=== PATIENT | female | born 1930 | race Caucasian/White ===

== ENCOUNTER 2019-05-01 07:14 | Inpatient (IN) | payer MEDICAID, MEDICARE ==
[2019-05-01 07:29] LABS: Hemoglobin 12.9 g/dL (12.0-16.0); Mean Corpuscular HGB CONC 32.8 g/dL (32.0-36.0); Mean Corpuscular Hemoglobin 31.7 pg (27.0-31.0); Mean Corpuscular Volume 96.6 fL (78.0-98.0); Mean Platelet Volume 7.4 fL (7.4-10.4); Platelet Count 221 thou/uL (130-400); RBC Distribution Width 11.7 % (11.5-14.5); Red Blood Cell (RBC) Count 4.06 mill/uL (4.20-5.40); White Blood Cell (WBC) Count 5.4 thou/uL (4.8-10.8)
[2019-05-01 07:36] LABS: Prothrombin Time 13.4 SEC (12.0-14.7)
[2019-05-01 07:39] LABS: PTT 31.4 SEC (22.9-36.1)
[2019-05-01 07:44] LABS: ALT (SGPT) 18 U/L (8-55); AST (SGOT) 24 U/L (5-34); Albumin 3.8 g/dL (3.4-4.8); Alkaline Phosphatase 64 U/L (40-110); Anion Gap 13 mmol/L (10-20); BUN (Urea Nitrogen) 22 mg/dL (9.8-20.1); Bilirubin, Total 0.6 mg/dL (0.2-1.2); CK (CPK) 97 U/L (29-168); Calc. Creatinine Clearance 0 mL/min (70-130); Carbon Dioxide 22 mmol/L (23-31); Chloride 101 mmol/L (98-107); Estimated GFR-MDRD 54; Globulin 2.8 g/dL (2.4-3.5); Glucose 106 mg/dL (83-110); Potassium 4.2 mmol/L (3.5-5.1); Protein, Total 6.6 g/dL (6.0-8.3); Sodium 132 mmol/L (136-145)
--- NOTE | 2019-05-01 07:44 | CT ---
EXAM: Brain CT scan Without contrast: HISTORY: Stroke alert, TIA, hypertension history, left-sided weakness, slurred speech, facial droop COMPARISON: None FINDINGS: Several small foci of increased density in the right middle cerebral artery, nonspecific. Atrophy and chronic white matter ischemic change. No focal mass or midline shift. No intra or extra-axial hemorrhage. The visualized sinuses and mastoids are clear of acute process. IMPRESSION: No mass or bleed or other significant acute intracranial process. Findings were discussed with the ordering physician at 7:40 AM CODE CR
[2019-05-01 07:48] LABS: Band 2 % (5-11); Eosinophils 2 % (0-10); Lymphocytes 36 % (21-51); MDiff Complete? YES; Monocytes 6 % (0-10); Neutrophil 52 % (42-75); Platelet Morphology Comment Appears Adequate; RBC Morphology Normal
--- NOTE | 2019-05-01 08:28 | RAD ---
EXAM: CHEST ONE VIEW HISTORY: Altered mental status. Left-sided deficits. Patient has left-sided facial droop and slurred speech. COMPARISON: None FINDINGS: The cardiac silhouette is enlarged. Pulmonary vasculature is within normal limits. There is mild prom inence of the interstitial markings within the lungs bilaterally which may be related to mild chronic lung changes. No consolidation or pleural fluid is identified. Vascular calcifications are se en in the thoracic aorta. There is osteopenia with mild degenerative changes in the thoracic spine. IMPRESSION: 1. No acute cardiopulmonary process. 2. Cardiomegaly. 3. Mild prominence of interstitial markings probably attributable to mild chronic interstitial lung c mejia.
--- NOTE | 2019-05-01 08:47 | CT ---
CT angiogram head CT angiogram neck CT perfusion: 05/01/2019 COMPARISON: None HISTORY: Left-sided weakness with slurred speech and facial droop TECHNIQUE: Axial CT imaging at 1.25 mm intervals from the vertex through the lung apices with IV cont rast using CT angiogram protocol with coronal and sagittal 3-D reformatted imaging. CT perfusion obtained as well. FINDINGS: Imaged lung apices demonstrate mild diffuse increased linear interstitial density with mild diffuse bronchial wall thickening. The retroantral fat and parapharyngeal fat appears clear bilaterally. The parotid and submandibular g lands are grossly unremarkable. Limited assessment of the aerodigestive tract appears grossly unremarkable. No lymphadenopathy is noted within the neck. Origin of the innominate artery, left common carotid artery, and left subclavian artery unremarkable. There is calcification at the origin of the left vertebral artery without stenosis. Origin of right subclavian artery, right common carotid artery, and right vertebral artery unremarkable. On the basis of NASCET criteria, no hemodynamically significant stenosis is appreciated involving the common carotid artery or the internal carotid artery on either side. There is atherosclerotic calcifi cation involving the distal CCA as well as the proximal ICA and proximal ECA bilaterally. Left vertebral artery is dominant. Bilateral vertebral arteries are patent. Multifocal distal right v ertebral artery stenosis noted with a focal area of severe stenosis involving the distal right vertebral artery just proximal to the origin of the basilar artery. No significant stenosis of the ba silar artery. Focal area of prominent RADIATION TECHNICIAN stenosis present on the left on axial image 206. No saccular aneurysm or vascular occlusion is seen involving the posterior circulation. Bilateral cavernous carotid atherosclerotic calcification. A1 segment patent bilaterally. Distal QUINTON branches unremarkable. ICA bifurcation is unremarkable bilaterally. There is mild/moderate stenosis involving the midportion of the left M1 segment. Left M1 segment is p atent. MCA bifurcation on the left appears unremarkable. Distal MCA branches on the left appear grossly unremarkable. A focal filling defect is noted within the distal M1 segment on the right, consistent with a focal th rombus within the distal right M1 segment, best seen on axial image 214. This results in a focal area of distal right M1 occlusion, evident on sagittal image 300. Associated mild loss of anterior M2 branches noted on the right. The osseous structures demonstrate multilevel cervical spine degenerative change with multilevel disc space narrowing as well as multilevel bilateral facet and uncovertebral osteophyte formation. No worrisome lytic or blastic bone lesion. IMPRESSION: Distal M1 clot on the right. Additional findings as detailed above. Results were discussed with Dr. Branch at approximately 7:55 AM 05/01/2019. Following this discussion, CT perfusion maps were obtained. CT perfusion maps demonstrate abnormal in creased time to peak and mean transit time involving the entire MCA distribution on the right. Blood flow is diminished throughout the right MCA territory as well. However, the cerebral blood volu me maps are normal suggesting a large salvageable penumbra with no definite evidence for completed infarction at this time. This was discussed with Dr. Santiago at approximately 8:35 AM 05/01/2019.
[2019-05-01] MEDS ORDERED: Heparin 10,000 UNITS/1 ML VIAL ONE (09:05)
[2019-05-01] MEDS ORDERED: Heparin (Artline) 1,000 ML ONE (09:05)
[2019-05-01] MEDS ORDERED: Heparin (Artline) 500 ML ONE (09:16)
[2019-05-01] MEDS ORDERED: Fentanyl 100 MCG/2 ML VIAL ONE (09:19)
[2019-05-01] MEDS ORDERED: PHENYLEPHRINE-NS 100 MCG/ML 10 ML SYRINGE ONE (09:44)
[2019-05-01] MEDS ORDERED: Ondansetron PF 4 MG/2 ML Vial ONE (09:44)
[2019-05-01] MEDS ORDERED: PROPOFOL 200 MG/20 ML VIAL ONE (09:44)
[2019-05-01] MEDS ORDERED: Glycopyrrolate 0.2 MG/ML 5 ML SYRINGE ONE (09:44)
[2019-05-01] MEDS ORDERED: Rocuronium Bromide 10 MG/ML (10ML VIAL) ONE (09:44)
[2019-05-01] MEDS ORDERED: Dexamethasone 20 MG/5 ML VIAL ONE (09:44)
[2019-05-01] MEDS ORDERED: Lidocaine 1% PF 5 ML VIAL ONE (09:44)
[2019-05-01] MEDS ORDERED: Labetalol HCl 100 MG/20 ML VIAL SLOW IVP PRN (10:19)
[2019-05-01] MEDS ORDERED: hydrALAZINE 20 MG/ML VIAL SLOW IVP PRN (10:19)
[2019-05-01] MEDS ORDERED: niCARdipine 25 MG in Sodium Chloride 0.9% 250 ML 240 ML IVPB PRN (10:19)
--- NOTE | 2019-05-01 10:19 | PRG ---
DATE OF SERVICE: 05/01/2019 Ms. Rolle is an 88-year-old female with history known for atrial fibrillation, who awoke today with a dense left hemiparesis and facial droop. She was brought to the ER, where she underwent a noncontrast head CT, which was negative for hemorrhage. Subsequent to that, she had a CT angiogram performed, which showed occlusion of the middle cerebral artery on the right. A CT perfusion study was performed, which indicated a viable penumbra distal to the occluded site. The plan this morning is cerebral angiography with the intent to treat with mechanical thrombectomy. Job ID: [id number]
[2019-05-01] MEDS ORDERED: SUGAMMADEX SODIUM 200 MG/2 ML VIAL ONE (10:33)
[2019-05-01] MEDS ORDERED: Iopamidol 370 76% 100 ML VIAL ONE (13:20)
[2019-05-01] MEDS ORDERED: Iopamidol 370 76% 50 ML VIAL FS ONE (13:20)
[2019-05-01] MEDS: Sodium Chloride 0.9% 1,000 ML IV SCH (13:30)
--- NOTE | 2019-05-01 16:00 | CON ---
DATE OF CONSULTATION: 05/01/2019 SERVICE: Pulmonary Medicine. REASON FOR CONSULTATION: ICU patient. HISTORY OF PRESENT ILLNESS: The patient is an 88-year-old white female with past medical history significant for TIA and atrial fibrillation. She was on Eliquis in the outpatient setting. She was on Plavix for a period of time, but this was previously interrupted. In her usual state of health last night, she went to bed. On waking up this morning, she was not able to move the left side of her body. She was brought to the emergency department. Because her window was unknown, no tPA was administered, but she was a candidate for a YAN procedure. She is postop day #0 from that procedure. She is recovering in the ICU. Her NIH scale has improved dramatically and is down to 4 at this moment. She denies any current fevers or chills, shortness of breath, nausea, or vomiting. Prior to this event, she would not have any fevers, chills, cough, sputum production, or diarrhea. Otherwise, she is in her usual state of health. The family is present at bedside and have no specific questions or concerns at this moment. They have a full appreciation for what has happened. We talked in broad terms about a stroke, and what that means to the patient. Hopefully, she will make good neurologic recovery, but only time can tell. PAST MEDICAL HISTORY: 1. Hypertension. 2. Atrial fibrillation. 3. History of TIA. 4. CVA. PAST SURGICAL HISTORY: YAN procedure. FAMILY HISTORY: Noncontributory. SOCIAL HISTORY: Negative for current alcohol, tobacco, or illicit drug use. She has no exposure to chemicals, dust, asbestos, or tuberculosis. ALLERGIES: NKDA MEDICATIONS: Reviewed in the medical record. REVIEW OF SYSTEMS: General, head, ears, eyes, nose, throat, cardiovascular, respiratory, GI, , musculoskeletal, neurologic, and skin is negative except as mentioned in the HPI. PHYSICAL EXAMINATION: VITAL SIGNS: Afebrile; pulse 99; blood pressure 142/85; respirations 16; and saturation 98%, currently on 2 L nasal cannula. GENERAL: The patient is awake and alert, in no apparent distress. LUNGS: Decent air entry with no prolonged expiratory phase or wheezing. HEART: Normal rate. Regular. ABDOMEN: Soft, nontender, and nondistended. Bowel sounds are positive. MUSCULOSKELETAL: No cyanosis or clubbing. There is no pitting in bilateral lower extremities. LABORATORY DATA: WBC 5.4, hemoglobin 12.9, and platelets 221,000. INR 1.0. Basic metabolic profile is essentially unremarkable. Liver function studies are normal. Troponin is negative x1. Blood glucose ranges from 106 to 116. ASSESSMENT: 1. Acute cerebrovascular accident, status post mechanical thrombectomy, postop day #0. 2. Atrial fibrillation, on anticoagulation. 3. History of transient ischemic attack. 4. Hypertension. DISCUSSION AND PLAN: In my mind, the patient will be a candidate for anti- platelet therapy through time. We will need to continue her anticoagulation as well. Neurology consult is in place. I will follow along in this location, but will likely initiate physical therapy starting tomorrow. After her allotted time lying flat is up, we will test her swallow and see whether or not nutrition can be initiated. Critical Care will follow along. 70 minutes have been devoted to this patient in various activities. I personally reviewed all imaging studies and laboratory data noted within this document. For fifty percent of this time, I was interacting with the patient at the bedside or coordinating care with the care team. For the remainder of the time I was immediately available to the patient in the hospital unit. Job ID: [id number] [facility]
--- NOTE | 2019-05-01 18:51 | CCL ---
DATE OF PROCEDURE: 05/01/19 SURGEON: Tone Santiago M.D. HEEL BLACKER: None. INDICATION: Ischemic stroke with occlusion of the right middle cerebral artery. PROCEDURE: Diagnostic cerebral angiogram with mechanical thrombectomy. ANESTHESIA: General. TECHNIQUE: The patient is brought to the Operating Room and placed under general anesthesia. She was placed on t he table in the supine position. Both groins were prepped and draped in the usual sterile fashion. 1% lidocaine was used to inject the right groin. A 5 Kuwaiti micropuncture set was used to gain access t o the right common femoral artery. Using a Seldinger technique, the needle was removed and an 8 Frenc h sheath was placed. An 8 Kuwaiti concentric guide catheter was passed over a long 5 Kuwaiti diagnostic catheter which was passed over a Bentzen guide wire and was advanced into the right internal carotid artery where an AP and lateral angiogram was then performed which confirmed the presence of complete occlusion of the right middle cerebral artery at the M1 segment. Trevo device was deployed for one t kelly where there was complete rastafari of flow back to its normal flow rate. All catheters were the n removed. Hemostasis maintained throughout. The wound was then closed with manual compression. The p rocedure came to an end without known complication. IMPRESSION: The patient underwent successful angiography with successful mechanical thrombectomy with one pass wi th complete rastafari of blood flow.
--- NOTE | 2019-05-01 21:14 | CON ---
DATE OF TELEMEDICINE CONSULTATION: 05-01-2019 CHIEF COMPLAINT: Acute stroke. HISTORY OF PRESENT ILLNESS: History was given by the patient as well as her medical record. The patient is an 88-year-old lady who was brought to the emergency room with acute onset of stroke in the setting of atrial fibrillation. She was on Eliquis and she was also on Plavix which was stopped. She went to bed and could not move her left side. She underwent YAN procedure because of the clot and she is postop day 0. She is slowly recovering in the ICU and per chart her NIH Stroke Scale has improved significantly post procedure. She still has mild confusion. She reports her left side became weaker and currently she is feeling somewhat better. PREVIOUS MEDICAL HISTORY: Atrial fibrillation, hypertension, TIA, CVA. PAST SURGICAL HISTORY: YAN procedure today. FAMILY HISTORY: Her mother at 88. Father at 89. He had memory loss and stroke. Her sister is 90 and in good health. Her son is 61 and another son has from a motor vehicle accident. SOCIAL HISTORY: Nonsmoker. No alcohol. REVIEW OF SYSTEMS: PULMONARY: Negative for shortness of breath or cough. GI: Negative for nausea, vomiting, or diarrhea. NEUROLOGICAL: Positive for acute stroke. DERMATOLOGIC: Negative. OPHTHALMOLOGIC: Negative. GENITOURINARY: Negative. CURRENT WORKUP: I reviewed her label remover procedure report as well, which was completed and a head and neck CT angiography prior to procedure overnight showed evidence of distal M1 clot on the right and she also had focal filling defect in the distal M1 segment on the right, consistent with a focal thrombus and left M1 is patent. MCA bifurcation on the left is unremarkable. LABORATORY WORKUP: White count 5.4, hemoglobin 12.9, hematocrit 39.2, platelet count 221. Chemistry; sodium 132, potassium 4.2, chloride 101, bicarb 22, BUN 22, creatinine 0.97, glucose 106. Lipid profile is still pending. Echocardiogram is also pending. MRI is also pending at the time of this dictation. PHYSICAL EXAMINATION: VITAL SIGNS: Temperature 98.4, blood pressure was 133/68, heart rate is 85, O2 sats 100%. GENERAL APPEARANCE: Well-built, well-nourished lady, who seems comfortable. CHEST: Clear, vesicular breathing. CARDIOVASCULAR: S1, S2 heard. No murmurs. ABDOMEN: Soft. NEUROLOGICAL: Higher intellectual function is normal. Orientation to time, place, and person. Appropriate conversation. She did have mild confusion when performing the neurological exam, or when discussing her son's age she was able to say he was born in 1959, but stated he was only 19 years old. CRANIAL NERVES: Normal extraocular movements. Pupils 2 mm, reactive to light. Sensory, normal to touch bilaterally. She has mild left facial droop as well. Tongue midline. Normal elevation of palate. Normal hearing. Motor; bulk normal, tone normal. Strength, 5-/5 in the left upper and lower extremities and pronator drift was present in the left upper extremity. Strength on the right side was 5 /5. Cerebellar; normal [id number], dmpu-[id number]. Sensory, as discussed. Slight decreased sensation on the left side. IMPRESSION: The patient with acute right M1 segment stroke. She has developed significant weakness on the left side with dysarthria per chart and had improvement after YAN procedure with clot retrieval. Her current neurological examination showed very mild weakness in the left side, mostly in the left upper extremity with slight pronator drift and mild confusion. Her stroke risk factors include hypertension and atrial fibrillation. She is currently under postop protocols for clot retrieval. RECOMMENDATIONS: Please consider adding aspirin to Eliquis and she is also being seen by Cardiology at this time. I will see her tomorrow again and please complete her workup with MRI and echocardiogram. Job ID: [id number] [facility]
[2019-05-02] MEDS: Sodium Chloride 0.9% 1,000 ML IV SCH ×2 (01:45→14:32)
[2019-05-02 04:48] LABS: Cardiac Risk 2.5 (Less than 4.5)
--- NOTE | 2019-05-02 07:49 | CT ---
PRELIMINARY REPORT/[facility]/AFTER HOURS PROCEDURE CT HEAD WITHOUT INTRAVENOUS CONTRAST: CLINICAL HISTORY: R/O CVA TECHNIQUE: Axial computed tomography images of the head/brain without intravenous contrast. COMPARISON: CT brain without contrast from 05/01/2019 at 7:35 a.m. PRINT LINE OPERATOR. FINDINGS: BRAIN: There is cerebral atrophy. There is no intracranial hemorrhage. Periventricular hypodensities are present secondary to small vessel ischemic disease. VENTRICLES: No hydrocephalus. ORBITS: The orbits are unremarkable. SINUSES AND MASTOIDS: The paranasal sinuses and mastoid air cells are clear. SOFT TISSUES: No significant facial or scalp soft tissue swelling evident. No radiopaque foreign body is seen. BONES: No acute skull fracture. IMPRESSION: No acute intracranial abnormality. ELECTRONICALLY SIGNED BY: Jonelle Vega MD May 02, 2019 5:54:42 AM PRINT LINE OPERATOR This report is intended for review by the ordering physician only, in accordance of law. If you recei ve this report in error, please call [facility] at [phone]. FINAL REPORT EMERGENT AFTER HOURS CT BRAIN WITHOUT IV CONTRAST: 05/02/2019 4:34 a.m. HISTORY: Status post Quin procedure, declot. FINDINGS: No mass or bleed or other acute process. Stable from prior exam (05/01/2019). CODE QA POS: [facility]
--- NOTE | 2019-05-02 10:57 | PRG ---
DATE OF TELEMEDICINE SERVICE: 05-02-2019 CHIEF COMPLAINT: Acute CVA. INTERVAL HISTORY: The patient had YAN procedure yesterday for her right MCA stroke. She is doing better today and is more awake and less confused. Overall , she is stable. Her current workup, no new labs are available. Cholesterol panel is normal except for mild elevation of general cholesterol level which was at 207. MRI scan is pending at this time, and brain CT was completed this morning per stroke protocol and her CT does not show any acute intracranial abnormality. PHYSICAL EXAMINATION: VITAL SIGNS: Blood pressure 124/70, heart rate 76, respiratory rate 15, O2 saturations 95, and temperature 98.4. GENERAL APPEARANCE: Well-built, well-nourished lady, who is comfortable. NEUROLOGIC: Higher intellectual functions; normal orientation to time, place, and person. Appropriate conversation. Cranial nerves, no facial droop noted. Normal extraocular movements. Tongue midline. Motor examination, bulk normal. Tone normal. Strength 5/5 except mild weakness of the extensors of her left hand and mild weakness of the left lower extremity at 4+/5. IMPRESSION: The patient is an 88-year-old lady with right MCA stroke, who underwent a YAN procedure and she is stable and doing well at this time. I feel she is going to recover well. She might need a short stay for rehab for gait mostly based on our current exams. Please complete stroke workup including echocardiogram and carotid Doppler. I will follow up as needed. She will need aspirin in addition to Eliquis for stroke prophylaxis along with statin. Job ID: [id number] [facility]
--- NOTE | 2019-05-02 15:42 | PRG ---
DATE OF SERVICE: 05/02/2019 SERVICE: Pulmonary Medicine. INTERVAL HISTORY: The patient is doing really well from a respiratory standpoint. Neurologically, she has had an absolutely wonderful response to the YAN procedure. She got near full recovery of the left upper and lower extremity. When she walks, she leans to the left with her gait. Outside of that, there has been no change to her condition. There are no fevers or chills overnight. PHYSICAL EXAMINATION: VITAL SIGNS: Afebrile, pulse 87, blood pressure 103/66, respirations 19, saturation 98% on 2 L nasal cannula. GENERAL: The patient is awake and alert, in no apparent distress. LUNGS: Wonderful air entry without any prolonged expiratory phase or wheezing present. HEART: Normal rate, regular. ABDOMEN: Soft, nontender, nondistended. Bowel sounds are positive. MUSCULOSKELETAL: No cyanosis or clubbing. There is no pitting in the bilateral lower extremities. NEUROLOGIC: Grossly nonfocal. LABORATORY DATA: WBC 5.4, hemoglobin 12.9, platelets 221,000. LDL 112, total cholesterol 207, triglycerides 54, HDL 84. IMAGING: CT of the brain demonstrates no acute intracranial abnormality. No mass or bleed following procedure. ASSESSMENT: 1. Acute cerebrovascular accident, status post mechanical thrombectomy, postoperative day one with near full return of neurologic function. 2. Atrial fibrillation, on anticoagulation. 3. History of transient ischemic attack. 4. Hypertension. DISCUSSION AND PLAN: The patient remains stable for transition out of the ICU to the Stroke Unit. When she leaves the ICU, she will have no further requirements for inpatient Pulmonary or Critical Care opinion, and I will sign off. Please call with additional questions or concerns through time. Job ID: [id number]
--- NOTE | 2019-05-02 20:32 | PRG ---
DATE OF SERVICE: 05/02/2019 Ms. Rolle has been transferred from the ICU to the stroke unit. On my exam, she is essentially normal. She had a repeat CT examination performed today, which shows no area concerning for a new infarct. I am very pleased with her recovery. She may not even qualify for inpatient rehab, although we should have her evaluated for that purpose. From my perspective, she can be discharged at any time. Job ID: [id number]
[2019-05-02] MEDS ORDERED: Enoxaparin Sodium 30 MG/0.3 ML SYRINGE SC SCH (21:00)
[2019-05-02] MEDS: Apixaban 2.5 MG TAB PO SCH (21:30)
[2019-05-02] MEDS: Atorvastatin Calcium 10 MG TAB PO SCH (21:30)
[2019-05-02] MEDS: Nebivolol HCl 5 MG TAB PO SCH (21:31)
[2019-05-02] MEDS: Senokot S 8.6-50 MG TAB PO SCH (21:31)
--- NOTE | 2019-05-02 21:43 | ULT ---
BILATERAL CAROTID DUPLEX ULTRASOUND: HISTORY: Stroke TECHNIQUE: Grayscale, color-flow and spectral Doppler ultrasound imaging of the extracranial carotid artery syst ems and vertebral arteries was performed bilaterally. Comparisons are made with a CTA of the head and neck dated May 01, 2019. FINDINGS: There is mild partially calcified atherosclerotic plaque involving carotid bulbs and proximal externa l carotid arteries. The peak systolic velocity in the right ICA measures 94.9 cm/s. The peak systolic velocity in the ri ght CCA measures 136.7 cm/s. The peak systolic velocity in the left ICA measures 111.3 cm/s. The peak systolic velocity in the left CCA measures 110.2 cm/s. The right IC/CC ratio is0.69. The left IC/CC ratio is 1.0. Vertebral flow: antegrade, bilaterally. . IMPRESSION: No hemodynamically significant stenosis of Both ICAs.
--- NOTE | 2019-05-03 07:23 | CON ---
DATE OF CONSULTATION: PRIMARY CARE PHYSICIAN: Dr. Denise in [place]. PRIMARY TEAM: Neurosurgery, Dr. Santiago. REASON FOR CONSULTATION: Medical management and assumption of care on the floor. HISTORY OF PRESENT ILLNESS: This is an 88-year-old white female with a history of atrial fibrillation, chronically, who has been on Eliquis. A couple of weeks ago, she was actually decreased in her dose to 2.5 twice a day. She woke up this morning, was unable to get out of bed or get herself out from underneath the covers and so her called EMS. They arrived and found her with left hemiparesis. She was brought to the hospital. 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 Dr. Santiago was consulted. He admitted the patient to the hospital and did a Quin procedure, was able to successfully remove the clot. She had marked improvement in her symptoms. She has regained most of her strength in her left side. She does still drift some to the left with walking. She also has had some dysphagia and is being followed by Speech Therapy. She has no complaints currently. Per the nursing, she does have a little bit of denial about the significance of her disease and is hopeful to get home quickly. PAST MEDICAL HISTORY: 1. Atrial fibrillation. 2. Hypertension. 3. Previous TIA and stroke. PAST SURGICAL HISTORY: Quin procedure this hospitalization. PAST FAMILY HISTORY: Father with memory loss and stroke. No other medical problems known in the family. SOCIAL HISTORY: No tobacco, alcohol, or illicit drug use. 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 ALLERGIES: NO KNOWN DRUG ALLERGIES. CURRENT MEDICATIONS: 1. Nebivolol 10 mg twice a day. 2. Eliquis 2.5 mg twice a day. 3. Calcium citrate plus vitamin D 1 tablet daily. 4. Mirabegron 25 mg daily. 5. Centrum Silver tablet daily. REVIEW OF SYSTEMS: CONSTITUTIONAL: No fevers. No chills. EYES: No double vision or blurred vision. ENT: No congestion, drainage, or sore throat. CARDIOVASCULAR: No chest pain. No palpitations or racing heart. PULMONARY: No coughing, wheezing, or shortness of breath. GASTROINTESTINAL: No abdominal pain. No nausea or vomiting. No diarrhea. She does report that she had an urge for a bowel movement last night, but did not have one. She has not had any bowel movements since her hospitalization. GENITOURINARY: No dysuria or hematuria. She does have a Villarreal catheter now. MUSCULOSKELETAL: No muscle aches or joint pain. SKIN: No rashes or lesions noted. NEUROLOGIC: See HPI. PHYSICAL EXAMINATION: VITAL SIGNS: Blood pressure 103/66, heart rate 87, respiratory rate 19, O2 saturation 98% on room air. GENERAL: This is a well-developed, well-nourished white female, in no acute distress. HEENT: Pupils are equal, round, and reactive to light. Oropharynx is clear without lesions, erythema, or exudate. NECK: Supple. No lymphadenopathy. No thyroid nodules or enlargement. No JVD. HEART: Irregularly irregular rhythm, controlled rate. No murmurs, rubs, or gallops. LUNGS: Clear to auscultation bilaterally. No wheezes, crackles, or rhonchi. ABDOMEN: Soft, nontender to palpation. Normoactive bowel sounds. No hepatosplenomegaly or other masses. EXTREMITIES: No clubbing, cyanosis, or edema. SKIN: No rashes or lesions noted. NEUROLOGIC: The patient has mild decreased strength in her left upper extremity and a mild loss of coordination in her extremities as well. She has minimal if any left facial droop residual. She has clear speech. No troubles with word finding. Her deep tendon reflexes are 2+ in all extremities and equal bilaterally. She has intact sensation in all extremities. PSYCHIATRIC: Alert and oriented x3. Normal mood and affect. LABORATORY DATA: CBC within normal limits. Coagulation profile normal. Complete metabolic panel is notable for sodium of 132, carbon dioxide of 22, BUN of 22. The rest is normal. Troponin is negative. Lipid profile shows a total cholesterol of 207, LDL of 112, HDL of 84, and triglyceride of 54. IMAGING DATA: EKG; the patient's EKG shows atrial fibrillation with a controlled rate. CTs; see history of present illness about the CT angio. She did have a repeat CT done today, which shows no evidence of intracranial hemorrhage. No acute changes. ASSESSMENT: 1. Acute right MCA stroke, status post Quin procedure with resolving symptoms. 2. Atrial fibrillation, on chronic anticoagulation. I do wonder if the patient might benefit from the higher dose Eliquis. At her age, she would typically need the lower dose, but it was after the dose was decreased that she had this stroke. We will leave that up to Neurology and Cardiology to determine as an outpatient on followup. Her rate is currently well controlled. 3. Hypertension, currently well controlled, on half dose of her Bystolic. 4. Hyperlipidemia. The patient actually has a pretty decent lipid profile. However, given her acute stroke, I do think starting atorvastatin is a reasonable idea. 5. Gastrointestinal prophylaxis, we will put the patient on Pepcid twice a day. 6. Deep venous thrombosis prophylaxis, the patient is already on Eliquis. 7. Dysphagia. Speech therapy is following. 8. Code status, I did discuss this with the patient, she is a full code. Should she be incapacitated, she stated that her will be her medical decision maker, his name is Domingo Rolle. Job ID: [id number]
[2019-05-03] MEDS ORDERED: Aspirin 325 mg Enteric Coated Tablet PO SCH (09:00)
[2019-05-03] MEDS: Nebivolol HCl 5 MG TAB PO SCH ×2 (09:22→20:38)
[2019-05-03] MEDS: Apixaban 2.5 MG TAB PO SCH ×2 (09:22→20:38)
[2019-05-03] MEDS: Multivitamin W/ Minerals 1 TAB PO SCH (09:23)
[2019-05-03] MEDS: Aspirin 81 mg Enteric Coated Tablet PO SCH (09:23)
[2019-05-03] MEDS: Famotidine 20 MG TAB PO SCH (09:23)
[2019-05-03] MEDS: Senokot S 8.6-50 MG TAB PO SCH ×2 (09:23→20:38)
[2019-05-03] MEDS: Calcium Carbonate + Vit D 1 TAB PO SCH (09:23)
--- NOTE | 2019-05-03 13:24 | MRI ---
MRI BRAIN NONCONTRAST: DATE: 05/03/2019 HISTORY: 88-year-old female with acute stroke COMPARISON: None FINDINGS: Small, approximately 1.3 x 0.5 cm focus of T2 hyperintensity in left cerebellar hemisphere with stron gly restricted diffusion. Heterogeneously diffusely hyperintense T2 signal involving majority of volume of right basal ganglia, especially putamen, associated with strongly restricted diffusion. Similar finding involving entire right caudate nucleus, right head and body. No such restricted diffusion involving cerebral cortex. No recent or remote intra-axial hemorrhage. No mass effect, midline shift, obstructive hydrocephalus, or extra-axial fluid collection. Mild chronic ischemic white matter changes. Age-appropriate diffuse brain parenchymal volume loss. Flow voids are grossly maintained in the major arteries of [place] of [place]. IMPRESSION: 1) acute infarction involving most of the right corpus striatum: right basal ganglia and right caudat e nucleus (lenticulostriate branch territory of right middle cerebral artery.) 2) small acute infarction of the left cerebellar hemisphere.
--- NOTE | 2019-05-03 14:49 | PDOC.HOSPP ---
- Subjective Encounter Date: 05/03/19 Encounter Time: 10:45 Subjective: awake, responds well to verbal stimuli has ambulated when she was in ICU. Family at bedside - Objective Vital Signs & Weight: Vital Signs (12 hours) Temp Pulse Resp BP Pulse Ox 05/03/19 11:41 98.3 F 92 16 159/77 H 98 05/03/19 07:36 98.4 F 85 20 164/82 H 94 L 05/03/19 03:33 97.3 F L 85 20 167/84 H 95 Weight Admit Weight 149 lb 11.102 oz Weight 149 lb 11.102 oz Most Recent Monitor Data Heart Rate from ECG 85 NIBP 130/62 NIBP BP-Mean 84 Respiration from ECG 23 SpO2 92 I&O: 05/02/19 05/03/19 05/04/19 06:59 06:59 06:59 Intake Total 1639 1619 Output Total 3255 506 Balance -1616 1113 Result Diagrams: 05/01/19 07:19 05/01/19 07:19 Hospitalist ROS - Medication Medications: Active Medications Generic Name Dose Route Start Last Admin Trade Name Erichq PRN Reason Stop Dose Admin Apixaban 2.5 mg 05/02/19 21:00 05/03/19 09:22 Eliquis PO 2.5 mg BID ELIZABETH Administration Aspirin 81 mg 05/03/19 09:00 05/03/19 09:23 Ecotrin PO 81 mg DAILY ELIZABETH Administration Atorvastatin Calcium 10 mg 05/02/19 21:00 05/02/19 21:30 Lipitor PO Not Given HS ELIZABETH Calcium/Vitamin D 1 tab 05/03/19 09:00 05/03/19 09:23 Caltrate 600 + Vit D PO 1 tab DAILY ELIZABETH Administration Famotidine 20 mg 05/03/19 09:00 05/03/19 09:23 Pepcid PO 20 mg DAILY ELIZABETH Administration Iron/Minerals/Multivitamins 1 tab 05/03/19 09:00 05/03/19 09:23 Theragran M PO 1 tab DAILY ELIZABETH Administration Mirabegron 25 mg 05/03/19 09:00 05/03/19 09:22 Myrbetriq Er PO 25 mg DAILY ELIZABETH Administration Mirabegron 25 mg 05/03/19 09:00 05/03/19 09:36 Myrbetriq Er PO Not Given DAILY ELIZABETH Nebivolol 5 mg 05/02/19 21:00 05/03/19 09:22 Bystolic PO 5 mg BID ELIZABETH Administration Senna/Docusate Sodium 1 tab 05/02/19 21:00 05/03/19 09:23 Senokot S PO 1 tab BID ELIZABETH Administration Sodium Chloride 10 ml 05/01/19 21:00 05/02/19 21:32 Flush - Normal Saline IVF 10 ml Q12HR ELIZABETH Administration - Exam General Appearance: awake alert Eye: PERRL, anicteric sclera ENT: no oropharyngeal lesions, moist mucosa Neck: supple, no JVD Heart: RRR, no murmur Respiratory: no wheezes, no rales Gastrointestinal: soft, non-tender, non-distended, normal bowel sounds Extremities: no cyanosis, no edema Neurological - other findings: mild left hemiparesis Psychiatric: normal affect, A&O x 3 Hosp A/P (1) Acute CVA (cerebrovascular accident) Code(s): I63.9 - CEREBRAL INFARCTION, UNSPECIFIED Status: Acute (2) HTN (hypertension) Code(s): I10 - ESSENTIAL (PRIMARY) HYPERTENSION Status: Chronic Qualifiers: Hypertension type: essential hypertension Qualified Code(s): I10 - Essential (primary) hypertension (3) Dyslipidemia Code(s): E78.5 - HYPERLIPIDEMIA, UNSPECIFIED Status: Chronic (4) Afib Code(s): I48.91 - UNSPECIFIED ATRIAL FIBRILLATION Status: Chronic Qualifiers: Atrial fibrillation type: paroxysmal Qualified Code(s): I48.0 - Paroxysmal atrial fibrillation - Plan pt is s/p Quin procedure for right MCA MRI confirms right basal ganglia, corpus striatum and caudate nucleus ac infarct , also has left cerebellar infarct. is on asp, eliquis, lipitor, bystolic and myrbetriq echo is pending await rehab placement in [facility] PT/OT to mobilize as tolerated.
[2019-05-03] MEDS ORDERED: Artificial Tears 18 DROP/0.9 ML EA EYE PRN (19:45)
[2019-05-03] MEDS: Atorvastatin Calcium 10 MG TAB PO SCH (20:38)
[2019-05-04] MEDS: Senokot S 8.6-50 MG TAB PO SCH ×2 (09:04→21:18)
[2019-05-04] MEDS: Nebivolol HCl 5 MG TAB PO SCH ×2 (09:05→21:18)
[2019-05-04] MEDS: Calcium Carbonate + Vit D 1 TAB PO SCH (09:05)
[2019-05-04] MEDS: Apixaban 2.5 MG TAB PO SCH ×2 (09:05→21:18)
[2019-05-04] MEDS: Multivitamin W/ Minerals 1 TAB PO SCH (09:05)
[2019-05-04] MEDS: Famotidine 20 MG TAB PO SCH (09:05)
[2019-05-04] MEDS: Aspirin 81 mg Enteric Coated Tablet PO SCH (09:06)
--- NOTE | 2019-05-04 12:50 | PDOC.HOSPP ---
- Subjective Encounter Date: 05/04/19 Encounter Time: 10:15 Subjective: Pt is not in distress, she stated she feels good Moving all extremities - Objective Vital Signs & Weight: Vital Signs (12 hours) Temp Pulse Pulse Pulse Resp BP BP 05/04/19 11:45 97.5 F L 82 16 05/04/19 09:10 104 H 89 160/81 H 157/74 H 05/04/19 08:00 98.2 F 101 H 16 05/04/19 05:19 91 05/04/19 04:00 98.0 F 104 H 16 BP BP Pulse Ox 05/04/19 11:45 160/79 H 96 05/04/19 09:10 05/04/19 08:00 158/90 H 95 05/04/19 05:19 172/93 H 05/04/19 04:00 183/84 H 95 Weight Admit Weight 149 lb 11.102 oz Weight 149 lb 11.102 oz Most Recent Monitor Data Heart Rate from ECG 85 NIBP 130/62 NIBP BP-Mean 84 Respiration from ECG 23 SpO2 92 I&O: 05/03/19 05/04/19 05/05/19 06:59 06:59 06:59 Intake Total 1619 940 Output Total 506 1050 Balance 1113 -110 Result Diagrams: 05/01/19 07:19 05/01/19 07:19 Hospitalist ROS - Medication Medications: Active Medications Generic Name Dose Route Start Last Admin Trade Name Freq PRN Reason Stop Dose Admin Apixaban 2.5 mg 05/02/19 21:00 05/04/19 09:05 Eliquis PO 2.5 mg BID ELIZABETH Administration Aspirin 81 mg 05/03/19 09:00 05/04/19 09:06 Ecotrin PO 81 mg DAILY ELIZABETH Administration Atorvastatin Calcium 10 mg 05/02/19 21:00 05/03/19 20:38 Lipitor PO Not Given HS [facility] Calcium/Vitamin D 1 tab 05/03/19 09:00 05/04/19 09:05 Caltrate 600 + Vit D PO 1 tab DAILY ELIZABETH Administration Famotidine 20 mg 05/03/19 09:00 05/04/19 09:05 Pepcid PO 20 mg DAILY ELIZABETH Administration Iron/Minerals/Multivitamins 1 tab 05/03/19 09:00 05/04/19 09:05 Theragran M PO 1 tab DAILY ELIZABETH Administration Mirabegron 25 mg 05/03/19 09:00 05/04/19 09:05 Myrbetriq Er PO 25 mg DAILY ELIZABETH Administration Nebivolol 5 mg 05/02/19 21:00 05/04/19 09:05 Bystolic PO 5 mg BID ELIZABETH Administration Senna/Docusate Sodium 1 tab 05/02/19 21:00 05/04/19 09:04 Senokot S PO Not Given BID ELIZABETH Sodium Chloride 10 ml 05/01/19 21:00 05/04/19 09:07 Flush - Normal Saline IVF 10 ml Q12HR ELIZABETH Administration - Exam General Appearance: NAD, awake alert Eye: PERRL, anicteric sclera ENT: no oropharyngeal lesions, moist mucosa Neck: supple, no JVD Heart: RRR, no murmur Respiratory: no wheezes, no rales Gastrointestinal: soft, non-tender, non-distended, normal bowel sounds Extremities: no cyanosis, no edema Neurological - other findings: mild L hemiparesis Psychiatric: normal affect, A&O x 3 Hosp A/P (1) Acute CVA (cerebrovascular accident) Code(s): I63.9 - CEREBRAL INFARCTION, UNSPECIFIED Status: Acute (2) HTN (hypertension) Code(s): I10 - ESSENTIAL (PRIMARY) HYPERTENSION Status: Chronic Qualifiers: Hypertension type: essential hypertension Qualified Code(s): I10 - Essential (primary) hypertension (3) Dyslipidemia Code(s): E78.5 - HYPERLIPIDEMIA, UNSPECIFIED Status: Chronic (4) Afib Code(s): I48.91 - UNSPECIFIED ATRIAL FIBRILLATION Status: Chronic Qualifiers: Atrial fibrillation type: paroxysmal Qualified Code(s): I48.0 - Paroxysmal atrial fibrillation - Plan pt is s/p Quin procedure for right MCA MRI confirms right basal ganglia, corpus striatum and caudate nucleus ac infarct , also has left cerebellar infarct. is on asp, eliquis, lipitor, bystolic and myrbetriq echo shows normal EF, severe TR, moderate MR await rehab placement in [facility] PT/OT to mobilize as tolerated.
[2019-05-04] MEDS: Atorvastatin Calcium 10 MG TAB PO SCH (21:18)
[2019-05-05] MEDS: Senokot S 8.6-50 MG TAB PO SCH ×2 (09:03→21:51)
[2019-05-05] MEDS: Aspirin 81 mg Enteric Coated Tablet PO SCH (09:03)
[2019-05-05] MEDS: Calcium Carbonate + Vit D 1 TAB PO SCH (09:03)
[2019-05-05] MEDS: Famotidine 20 MG TAB PO SCH (09:03)
[2019-05-05] MEDS: Nebivolol HCl 5 MG TAB PO SCH ×2 (09:03→21:51)
[2019-05-05] MEDS: Multivitamin W/ Minerals 1 TAB PO SCH (09:03)
[2019-05-05] MEDS: Apixaban 2.5 MG TAB PO SCH ×2 (10:42→21:51)
--- NOTE | 2019-05-05 14:37 | PDOC.HOSPP ---
- Subjective Encounter Date: 05/05/19 Encounter Time: 10:00 Subjective: feels better, is tolerating current pureed diet ambulating with PT - Objective Vital Signs & Weight: Vital Signs (12 hours) Temp Pulse Resp BP BP Pulse Ox 05/05/19 11:56 97.9 F 104 H 16 128/78 96 05/05/19 09:55 85 119/65 05/05/19 09:45 99 20 116/72 94 L 05/05/19 09:00 94 L 05/05/19 08:00 98.5 F 95 16 154/81 H 94 L 05/05/19 04:00 98.1 F 101 H 16 156/74 H 95 Weight Admit Weight 149 lb 11.102 oz Weight 150 lb 4.8 oz Most Recent Monitor Data Heart Rate from ECG 85 NIBP 130/62 NIBP BP-Mean 84 Respiration from ECG 23 SpO2 92 I&O: 05/04/19 05/05/19 05/06/19 06:59 06:59 06:59 Intake Total 940 480 Output Total 1050 300 Balance -110 180 Result Diagrams: 05/01/19 07:19 05/01/19 07:19 Hospitalist ROS - Medication Medications: Active Medications Generic Name Dose Route Start Last Admin Trade Name Freq PRN Reason Stop Dose Admin Apixaban 2.5 mg 05/02/19 21:00 05/05/19 10:42 Eliquis PO 2.5 mg BID ELIZABETH Administration Aspirin 81 mg 05/03/19 09:00 05/05/19 09:03 Ecotrin PO 81 mg DAILY ELIZABETH Administration Calcium/Vitamin D 1 tab 05/03/19 09:00 05/05/19 09:03 Caltrate 600 + Vit D PO 1 tab DAILY ELIZABETH Administration Famotidine 20 mg 05/03/19 09:00 05/05/19 09:03 Pepcid PO 20 mg DAILY ELIZABETH Administration Iron/Minerals/Multivitamins 1 tab 05/03/19 09:00 05/05/19 09:03 Theragran M PO 1 tab DAILY ELIZABETH Administration Mirabegron 25 mg 05/03/19 09:00 05/05/19 09:03 Myrbetriq Er PO 25 mg DAILY ELIZABETH Administration Nebivolol 5 mg 05/02/19 21:00 05/05/19 09:03 Bystolic PO 5 mg BID ELIZABETH Administration Senna/Docusate Sodium 1 tab 05/02/19 21:00 05/05/19 09:03 Senokot S PO Not Given BID ELIZABETH Sodium Chloride 10 ml 05/01/19 21:00 05/05/19 09:04 Flush - Normal Saline IVF 10 ml Q12HR ELIZABETH Administration - Exam General Appearance: awake alert Eye: PERRL, anicteric sclera ENT: no oropharyngeal lesions, moist mucosa Neck: supple, no JVD Heart: RRR, no murmur Respiratory: no wheezes, no rales Gastrointestinal: soft, non-tender, non-distended, normal bowel sounds Extremities: no cyanosis, no edema Neurological - other findings: mild left hemiparesis Psychiatric: normal affect, A&O x 3 Hosp A/P (1) Acute CVA (cerebrovascular accident) Code(s): I63.9 - CEREBRAL INFARCTION, UNSPECIFIED Status: Acute (2) HTN (hypertension) Code(s): I10 - ESSENTIAL (PRIMARY) HYPERTENSION Status: Chronic Qualifiers: Hypertension type: essential hypertension Qualified Code(s): I10 - Essential (primary) hypertension (3) Dyslipidemia Code(s): E78.5 - HYPERLIPIDEMIA, UNSPECIFIED Status: Chronic (4) Afib Code(s): I48.91 - UNSPECIFIED ATRIAL FIBRILLATION Status: Chronic Qualifiers: Atrial fibrillation type: paroxysmal Qualified Code(s): I48.0 - Paroxysmal atrial fibrillation - Plan pt is s/p Quin procedure for right MCA MRI confirms right basal ganglia, corpus striatum and caudate nucleus ac infarct , also has left cerebellar infarct. is on asp, eliquis, lipitor, bystolic and myrbetriq echo shows normal EF, severe TR, moderate MR await rehab placement in [facility], is accepted to [facility], [place] if insurance approves. PT/OT to mobilize as tolerated. Advance diet to solid diet as tolerated without aspiration.
[2019-05-05] MEDS: Atorvastatin Calcium 40 MG TAB PO SCH (21:51)
[2019-05-06] MEDS: Calcium Carbonate + Vit D 1 TAB PO SCH (10:10)
[2019-05-06] MEDS: Famotidine 20 MG TAB PO SCH (10:10)
[2019-05-06] MEDS: Apixaban 2.5 MG TAB PO SCH ×2 (10:10→20:44)
[2019-05-06] MEDS: Multivitamin W/ Minerals 1 TAB PO SCH (10:10)
[2019-05-06] MEDS: Aspirin 81 mg Enteric Coated Tablet PO SCH (10:10)
[2019-05-06] MEDS: Nebivolol HCl 5 MG TAB PO SCH ×2 (10:11→20:44)
[2019-05-06] MEDS: Senokot S 8.6-50 MG TAB PO SCH ×2 (10:47→20:44)
--- NOTE | 2019-05-06 11:51 | PDOC.HOSPP ---
- Subjective Encounter Date: 05/06/19 Encounter Time: 10:00 Subjective: awake, no complaints tolerating oral diet, is amb with PT - Objective Vital Signs & Weight: Vital Signs (12 hours) Temp Pulse Pulse Pulse Resp BP BP 05/06/19 11:37 98.3 F 103 H 17 05/06/19 08:43 112 H 95 147/69 H 146/77 H 05/06/19 07:30 98.5 F 88 15 05/06/19 04:00 98.2 F 100 16 05/06/19 00:00 98.1 F 93 16 BP Pulse Ox 05/06/19 11:37 150/78 H 95 05/06/19 08:43 05/06/19 07:30 144/80 H 96 05/06/19 04:00 146/69 H 94 L 05/06/19 00:00 140/65 92 L Weight Admit Weight 149 lb 11.102 oz Weight 150 lb 4.8 oz Most Recent Monitor Data Heart Rate from ECG 85 NIBP 130/62 NIBP BP-Mean 84 Respiration from ECG 23 SpO2 92 I&O: 05/05/19 05/06/19 05/07/19 06:59 06:59 06:59 Intake Total 480 750 Output Total 300 800 Balance 180 -50 Result Diagrams: 05/01/19 07:19 05/01/19 07:19 Hospitalist ROS - Medication Medications: Active Medications Generic Name Dose Route Start Last Admin Trade Name Freq PRN Reason Stop Dose Admin Apixaban 2.5 mg 05/02/19 21:00 05/06/19 10:10 Eliquis PO 2.5 mg BID ELIZABETH Administration Aspirin 81 mg 05/03/19 09:00 05/06/19 10:10 Ecotrin PO 81 mg DAILY ELIZABETH Administration Atorvastatin Calcium 40 mg 05/05/19 21:00 05/05/19 21:51 Lipitor PO 40 mg HS ELIZABETH Administration Calcium/Vitamin D 1 tab 05/03/19 09:00 05/06/19 10:10 Caltrate 600 + Vit D PO 1 tab DAILY ELIZABETH Administration Famotidine 20 mg 05/03/19 09:00 05/06/19 10:10 Pepcid PO 20 mg DAILY ELIZABETH Administration Iron/Minerals/Multivitamins 1 tab 05/03/19 09:00 05/06/19 10:10 Theragran M PO 1 tab DAILY ELIZABETH Administration Mirabegron 25 mg 05/03/19 09:00 05/06/19 10:11 Myrbetriq Er PO 25 mg DAILY ELIZABETH Administration Nebivolol 5 mg 05/02/19 21:00 05/06/19 10:11 Bystolic PO 5 mg BID ELIZABETH Administration Senna/Docusate Sodium 1 tab 05/02/19 21:00 05/06/19 10:47 Senokot S PO Not Given BID ELIZABETH Sodium Chloride 10 ml 05/01/19 21:00 05/06/19 10:12 Flush - Normal Saline IVF Not Given Q12HR ELIZABETH - Exam General Appearance: awake alert Eye: PERRL, anicteric sclera ENT: no oropharyngeal lesions, moist mucosa Neck: supple, no JVD Heart: RRR, no murmur Respiratory: no wheezes, no rales, no ronchi Gastrointestinal: soft, non-tender, non-distended, normal bowel sounds Extremities: no cyanosis, no edema Neurological - other findings: mild left hemiparesis Psychiatric: normal affect, A&O x 3 Hosp A/P (1) Acute CVA (cerebrovascular accident) Code(s): I63.9 - CEREBRAL INFARCTION, UNSPECIFIED Status: Acute (2) HTN (hypertension) Code(s): I10 - ESSENTIAL (PRIMARY) HYPERTENSION Status: Chronic Qualifiers: Hypertension type: essential hypertension Qualified Code(s): I10 - Essential (primary) hypertension (3) Dyslipidemia Code(s): E78.5 - HYPERLIPIDEMIA, UNSPECIFIED Status: Chronic (4) Afib Code(s): I48.91 - UNSPECIFIED ATRIAL FIBRILLATION Status: Chronic Qualifiers: Atrial fibrillation type: paroxysmal Qualified Code(s): I48.0 - Paroxysmal atrial fibrillation - Plan pt is s/p Quin procedure for right MCA MRI confirms right basal ganglia, corpus striatum and caudate nucleus ac infarct , also has left cerebellar infarct. is on asp, eliquis, lipitor, bystolic and myrbetriq echo shows normal EF, severe TR, moderate MR await rehab placement in [facility], is accepted to [facility], [place] dc if insurance approves. PT/OT to mobilize as tolerated. Advance diet to solid diet as tolerated without aspiration.
[2019-05-06] MEDS: Atorvastatin Calcium 40 MG TAB PO SCH (20:45)
[2019-05-07] MEDS: Apixaban 2.5 MG TAB PO SCH (08:46)
[2019-05-07] MEDS: Calcium Carbonate + Vit D 1 TAB PO SCH (08:46)
[2019-05-07] MEDS: Nebivolol HCl 5 MG TAB PO SCH (08:46)
[2019-05-07] MEDS: Aspirin 81 mg Enteric Coated Tablet PO SCH (08:46)
[2019-05-07] MEDS: Famotidine 20 MG TAB PO SCH (08:47)
[2019-05-07] MEDS: Multivitamin W/ Minerals 1 TAB PO SCH (08:47)
[2019-05-07] MEDS: Senokot S 8.6-50 MG TAB PO SCH (08:47)
[2019-05-07 10:48] VITALS: BMI 21.2
[2019-05-07 11:43] VITALS: TEMP 99
[2019-05-07 12:44] VITALS: BP 144/69
--- NOTE | 2019-05-07 12:47 | PDOC.HOSPP ---
- Subjective Encounter Date: 05/07/19 Encounter Time: 09:00 Subjective: is sitting on bed, feels good - Objective Vital Signs & Weight: Vital Signs (12 hours) Temp Pulse Resp BP Pulse Ox 05/07/19 11:11 99 F 85 16 130/61 93 L 05/07/19 07:10 97.5 F L 76 16 144/77 H 95 05/07/19 04:00 98 F 76 16 145/73 H 93 L Weight Admit Weight 149 lb 11.102 oz Weight 152 lb Most Recent Monitor Data Heart Rate from ECG 85 NIBP 130/62 NIBP BP-Mean 84 Respiration from ECG 23 SpO2 92 I&O: 05/06/19 05/07/19 05/08/19 06:59 06:59 06:59 Intake Total 750 150 150 Output Total 800 200 700 Balance -50 -50 -550 Result Diagrams: 05/01/19 07:19 05/01/19 07:19 Hospitalist ROS - Medication Medications: Active Medications Generic Name Dose Route Start Last Admin Trade Name Erichq PRN Reason Stop Dose Admin Apixaban 2.5 mg 05/02/19 21:00 05/07/19 08:46 Eliquis PO 2.5 mg BID ELIZABETH Administration Aspirin 81 mg 05/03/19 09:00 05/07/19 08:46 Ecotrin PO 81 mg DAILY ELIZABETH Administration Atorvastatin Calcium 40 mg 05/05/19 21:00 05/06/19 20:45 Lipitor PO 40 mg HS ELIZABETH Administration Calcium/Vitamin D 1 tab 05/03/19 09:00 05/07/19 08:46 Caltrate 600 + Vit D PO 1 tab DAILY ELIZABETH Administration Famotidine 20 mg 05/03/19 09:00 05/07/19 08:47 Pepcid PO 20 mg DAILY ELIZABETH Administration Iron/Minerals/Multivitamins 1 tab 05/03/19 09:00 05/07/19 08:47 Theragran M PO 1 tab DAILY ELIZABETH Administration Mirabegron 25 mg 05/03/19 09:00 05/07/19 08:46 Myrbetriq Er PO 25 mg DAILY ELIZABETH Administration Nebivolol 5 mg 05/02/19 21:00 05/07/19 08:46 Bystolic PO 5 mg BID ELIZABETH Administration Senna/Docusate Sodium 1 tab 05/02/19 21:00 05/07/19 08:47 Senokot S PO Not Given BID ELIZABETH Sodium Chloride 10 ml 05/01/19 21:00 05/07/19 08:47 Flush - Normal Saline IVF Not Given Q12HR ELIZABETH - Exam General Appearance: awake alert Eye: PERRL, anicteric sclera ENT: no oropharyngeal lesions, moist mucosa Neck: supple, no JVD Heart: RRR, no murmur Respiratory: no wheezes, no rales Gastrointestinal: soft, non-tender, non-distended, normal bowel sounds Extremities: no cyanosis, no edema Neurological - other findings: mild left hemiparesis Psychiatric: normal affect, A&O x 3 Hosp A/P (1) Acute CVA (cerebrovascular accident) Code(s): I63.9 - CEREBRAL INFARCTION, UNSPECIFIED Status: Acute (2) HTN (hypertension) Code(s): I10 - ESSENTIAL (PRIMARY) HYPERTENSION Status: Chronic Qualifiers: Hypertension type: essential hypertension Qualified Code(s): I10 - Essential (primary) hypertension (3) Dyslipidemia Code(s): E78.5 - HYPERLIPIDEMIA, UNSPECIFIED Status: Chronic (4) Afib Code(s): I48.91 - UNSPECIFIED ATRIAL FIBRILLATION Status: Chronic Qualifiers: Atrial fibrillation type: paroxysmal Qualified Code(s): I48.0 - Paroxysmal atrial fibrillation - Plan pt is s/p Quin procedure for right MCA MRI confirms right basal ganglia, corpus striatum and caudate nucleus ac infarct , also has left cerebellar infarct. is on asp, eliquis, lipitor, bystolic and myrbetriq echo shows normal EF, severe TR, moderate MR DC pt to [facility] PT/OT to mobilize as tolerated. Advance diet to solid diet as tolerated with aspiration.
--- NOTE | 2019-05-07 17:14 | DIS ---
DATE OF ADMISSION: 05/01/2019 DATE OF DISCHARGE: 05/07/2019 DISCHARGE DISPOSITION: [facility]. 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 SECONDARY DISCHARGE DIAGNOSES: Hypertension, chronic atrial fibrillation, dyslipidemia. PROCEDURES DONE DURING HOSPITALIZATION: Initial CT brain done on admission did not reveal any acute infarct or bleed. CT angio of brain done showed distal M1 clot on the right. Blood flow was diminished throughout the right MCA territory. However, the cerebral blood volume maps are normal suggesting a large salvageable penumbra with no definite evidence for completed infarct at this time. The patient has had a diagnostic cerebral angiogram with mechanical thrombectomy done of right MCA territory with one pass with complete mandaen of blood flow. This was done on admission on 05/01/[address] Santiago. MRI brain done on 05/03/2019 showed acute infarct involving most of the right corpus striatum, right basal ganglia, and right caudate nucleus, likely lenticulostriate branch territory of right middle cerebral artery. Small acute infarct of left cerebellar hemisphere. Echo with 2D Doppler done showed an EF of 55% to 60%. Left atrium was moderately dilated. There is moderately enlarged right atrium, moderate mitral regurgitation was seen along with severe tricuspid regurgitation on the echo. H and H 12 and 39, platelet count 221. BUN and creatinine 22 and 0.9. Total cholesterol 207, triglycerides 54, LDL 112, HDL 84. INPATIENT CONSULT: Dr. Tone Santiago for Neurosurgery, Dr. Ariane Figueroa for Neurology. BRIEF COURSE DURING HOSPITALIZATION: The patient initially came in with complaints of left-sided weakness, facial droop, slurred speech. She was seen in the ER and has had initial CT brain without contrast and CT angio of brain. The results have described above. The patient was initially admitted to Neurosurgery under Dr. Tone Santiago. The patient has had mechanical thrombectomy done from right MCA territory. Post this procedure, the patient was ambulating in the ICU. She was later downgraded to stroke unit. She has very minimal motor deficits on the left side with mild hemiparesis and dysphagia. Prior to discharge, she is on a pureed diet and is ambulating around 200 feet with more than 200 feet with physical therapy. She has remained neurologically and hemodynamically stable. She has been accepted to [facility] and will be shortly discharged. Please see a [id number]-meio documentation for the day of discharge. She needs to continue Eliquis for history of chronic atrial fibrillation. A total of 35 minutes was spent on discharge plan. Job ID: [id number]
== END 2019-05-07 14:50 | DRG 24 ==
LOC: ERS 07:14 → SURG A 09:16 → 2SE 09:36 → CCU 11:03 → 2SE 05-02 19:11
PROVIDERS: ADMIT Emergency Medicine; ATTEND Emergency Medicine
PROC: 03CG3ZZ Extirpation of Matter from Intracranial Artery, Percutaneous Approach (ICD-10-PCS; principal; 2019-05-01)
PROC: B020ZZZ Computerized Tomography (CT Scan) of Brain (ICD-10-PCS; 2019-05-01)
PROC: B030ZZZ Magnetic Resonance Imaging (MRI) of Brain (ICD-10-PCS; 2019-05-03)
DX: I63.511 Cerebral infarction due to unspecified occlusion or stenosis of right middle cerebral artery (principal); G81.94 Hemiplegia, unspecified affecting left nondominant side; R29.810 Facial weakness; R47.81 Slurred speech; I10 Essential (primary) hypertension; R29.704 NIHSS score 4; E78.5 Hyperlipidemia, unspecified; R13.10 Dysphagia, unspecified; I48.0 Paroxysmal atrial fibrillation; I63.89 Other cerebral infarction; I08.1 Rheumatic disorders of both mitral and tricuspid valves; Z86.73 Personal history of transient ischemic attack (TIA), and cerebral infarction without residual deficits; Z79.01 Long term (current) use of anticoagulants
CPT/HCPCS: 0042T; 36415; 36416; 37184; 70450; 70496; 70498; 70551; 71045; 80053; 80061; 82550; 84484; 85025; 85610; 85730; 93005; 93306; 93880; C1757; C1887; J1100; J1644; J2001; J2405; J2704; J3010; Q9967